=== PATIENT | female | born 1950 | race Caucasian/White ===

== ENCOUNTER 2019-12-10 15:50 | Emergency (ER) | payer MEDICARE, OTHER ==
[2019-12-10] MEDS ORDERED: MECLIZINE HCL 25 MG TABLET PO ONE ×2 (17:15→23:30)
--- NOTE | 2019-12-10 17:19 | ER Document Report ---
ED Medical Screen (RME) - General Chief Complaint: Dizziness Stated Complaint: DIZZINESS Time Seen by Provider: 12/10/19 17:13 Mode of Arrival: Ambulatory Information source: Patient Physical Exam - Vital signs Vitals: Temp Pulse Resp BP Pulse Ox 98.8 F 73 18 131/80 H 97 12/10/19 15:59 12/10/19 15:59 12/10/19 15:59 12/10/19 15:59 12/10/19 15:59 Course - Re-evaluation Re-evalutation: 12/10/19 17:18 pt complains of diffuse paresthesias in all ext. hard to walk. no nvd. no fever. no pain. been going on for one month. sent by urgent care. exam non focal neuro, nml speech, non labored breathing, no distress. - Vital Signs Vital signs: Temp Pulse Resp BP Pulse Ox 98.8 F 73 18 131/80 H 97 12/10/19 15:59 12/10/19 15:59 12/10/19 15:59 12/10/19 15:59 12/10/19 15:59
--- NOTE | 2019-12-10 17:48 | RADIOLOGY REPORT (SQ) ---
EXAM DESCRIPTION: CT HEAD WITHOUT IMAGES COMPLETED DATE/TIME: 12/10/2019 5:39 pm REASON FOR STUDY: dizzy COMPARISON: None. TECHNIQUE: Axial images acquired through the brain without intravenous contrast. Images reviewed wi th bone, brain and subdural windows. Additional sagittal and coronal reconstructions were generated. Images stored on PACS. All CT scanners at this facility use dose modulation, iterative reconstruction, and/or weight based d osing when appropriate to reduce radiation dose to as low as reasonably achievable (ALARA). [facility]: Dose Right [facility]: CareDose [facility]: Dose Right [facility]: Teradose 4D [facility]: Smart [employer] RADIATION DOSE: CT Rad equipment meets quality standard of care and radiation dose reduction techniq ues were employed. CTDIvol: 53.2 mGy. DLP: 991 mGy-cm. mGy. LIMITATIONS: None. FINDINGS: VENTRICLES: Normal size and contour. CEREBRUM: No masses. No hemorrhage. No midline shift. No evidence for acute infarction. Normal gra y/white matter differentiation. No areas of low density in the white matter. CEREBELLUM: No masses. No hemorrhage. No alteration of density. No evidence for acute infarction. EXTRAAXIAL SPACES: No fluid collections. No masses. ORBITS AND GLOBE: No intra- or extraconal masses. Normal contour of globe without masses. CALVARIUM: No fracture. PARANASAL SINUSES: No fluid or mucosal thickening. SOFT TISSUES: No mass or hematoma. OTHER: No other significant finding. IMPRESSION: NORMAL BRAIN CT WITHOUT CONTRAST. EVIDENCE OF ACUTE STROKE: NO. COMMENT: Quality ID # [id number]: Final reports with documentation of one or more dose reduction techniques (e.g., Automated exposure control, adjustment of the mA and/or kV according to patient size, use of iterative reconstruction technique) TECHNICAL DOCUMENTATION: JOB ID: [id number] 2010 [employer]- All Rights Reserved Reading location - IP/workstation name: [email or web address]
[2019-12-10 18:22] LABS: ABSOLUTE EOSINOPHILS # (AUTO) 0.2 10^3/uL (0.0-0.6); ABSOLUTE MONOCYTES (AUTO) 0.4 10^3/uL (0.1-1.4); MONOCYTES % (AUTO) 4.7 % (3-13); TOTAL CELLS COUNTED % (AUTO) 100 %
[2019-12-10 18:24] LABS: APPEARANCE,URINE CLEAR; BILIRUBIN,URINE NEGATIVE (NEGATIVE); COLOR,URINE YELLOW; GLUCOSE, URINE NEGATIVE (NEGATIVE); KETONES,URINE NEGATIVE (NEGATIVE); PROTEIN,URINE NEGATIVE (NEGATIVE); URINE SPECIFIC GRAVITY 1.017; UROBILINOGEN,URINE NEGATIVE mg/dL (<2.0)
[2019-12-10 18:31] LABS: ABSOLUTE LYMPHOCYTES (AUTO) 2.6 10^3/uL (0.5-4.7); ABSOLUTE NEUT (AUTO) 4.8 10^3/uL (1.7-8.2); BASOPHILS % (AUTO) 0.3 % (0-2); EOSINOPHILS % (AUTO) 2.2 % (0-6); HEMATOCRIT 40.5 % (36.0-47.0); HEMOGLOBIN 14.2 g/dL (12.0-15.5); LYMPHOCYTES % (AUTO) 32.3 % (13-45); MEAN CORPUSCULAR HEMOGLOBIN 28.8 pg (27.0-33.4); MEAN CORPUSCULAR VOLUME 82 fl (80-97); PLATELET COUNT 367 10^3/uL (150-450); RED BLOOD COUNT 4.92 10^6/uL (3.72-5.28); SEGMENTED NEUTROPHILS % (AUTO) 60.5 % (42-78); WHITE BLOOD COUNT 7.9 10^3/uL (4.0-10.5)
[2019-12-10 18:36] LABS: ALBUMIN 4.5 g/dL (3.5-5.0); ALKALINE PHOSPHATASE 119 U/L (38-126); ANION GAP 9 (5-19); ASPARTATE AMINO TRANSFERASE 35 U/L (14-36); BILIRUBIN,DIRECT 0.3 mg/dL (0.0-0.4); BILIRUBIN,TOTAL 0.5 mg/dL (0.2-1.3); BLOOD UREA NITROGEN 16 mg/dL (7-20); CALCIUM 9.7 mg/dL (8.4-10.2); CARBON DIOXIDE 32 mmol/L (22-30); CHLORIDE 100 mmol/L (98-107); GLUCOSE 100 mg/dL (75-110); POTASSIUM 4.1 mmol/L (3.6-5.0); TOTAL PROTEIN 7.7 g/dL (6.3-8.2)
--- NOTE | 2019-12-10 22:49 | ER Document Report ---
Entered by MICHAEL PACHECO SCRIBE 12/10/19 [id number] Acting as scribe for:ELIS KENNY DO ED General - General Chief Complaint: Dizziness Stated Complaint: DIZZINESS Time Seen by Provider: 12/10/19 17:13 Mode of Arrival: Ambulatory Information source: Patient, Relative - Daughter Notes: This 69 year old female patient with a history of COPD and hyperthyroidism presents to the emergency department today with complaints of general weakness the past x2 months. Patient states she visited her PCP and her thyroid medication was increased slowly. Patient states her weakness and dizziness has worsened the past x2 weeks and her thyroid medication dosage was decreased. Daajay hter reports trouble sleeping and decreased appetite. Denies constipation, abdominal pain, N/V/D, or covid exposure. Past Medical History - General Information source: Patient, Relative - Daughter - Social History Smoking Status: Former Smoker Lives with: Family Family History: Reviewed & Not Pertinent Pulmonary Medical History: Reports: Hx COPD Endocrine Medical History: Reports: Hx Hyperthyroidism Review of Systems - Review of Systems Constitutional: See HPI, Weakness EENT: No symptoms reported Cardiovascular: See HPI, Dizziness Respiratory: No symptoms reported Gastrointestinal: See HPI, Poor appetite. denies: Abdominal pain, Diarrhea, Nausea, Vomiting, Constipation Genitourinary: No symptoms reported Female Genitourinary: No symptoms reported Musculoskeletal: No symptoms reported Skin: No symptoms reported Hematologic/Lymphatic: No symptoms reported Neurological/Psychological: See HPI -: Yes All other systems reviewed and negative Physical Exam - Vital signs Vitals: Temp 98.7 F 12/10/19 15:50 - General General appearance: Appears well, Alert - HEENT Head: Normocephalic, Atraumatic Eyes: Normal Pupils: PERRL - Respiratory Respiratory status: No respiratory distress Chest status: Nontender Breath sounds: Normal Chest palpation: Normal - Cardiovascular Rhythm: Regular Heart sounds: Normal auscultation Murmur: No - Abdominal Inspection: Obese Distension: No distension Bowel sounds: Normal Tenderness: Nontender - Extremities General upper extremity: Normal inspection, Normal ROM. No: Edema General lower extremity: Normal inspection, Normal ROM. No: Edema - Neurological Neuro grossly intact: Yes Cognition: Normal Orientation: AAOx4 Alpha Coma Scale Eye Opening: Spontaneous Alpha Coma Scale Verbal: Oriented Alpha Coma Scale Motor: Obeys Commands Alpha Coma Scale Total: 15 Speech: Normal - Psychological Associated symptoms: Normal affect, Normal mood - Skin Skin Temperature: Warm Skin Moisture: Dry Skin Color: Normal Course - Re-evaluation Re-evalutation: 12/10/19 23:20 MDM 69 year old female with generalized weakness for at least 6 weeks and perhaps 2 months. No focal weakness. Very tired. Noted to be dizzy - both lightheaded and vertiginous today. No fever, covid exposure or other problems or concerns. She was relieved to hear that her ct scan was unrenarkable. Her levothyroxine dose has been too high and was adjusted down a few weeks ago they tell and unsure what the last dose is that she is currently taking. The thyroid could be responsible for her symptoms and she needs close follow up with her primary doctor - which we discussed - and she tells me she understands this and she will follow up. - Vital Signs Vital signs: Temp Pulse Resp BP Pulse Ox 97.6 F 68 16 119/62 98 12/10/19 23:57 12/10/19 23:57 12/10/19 23:57 12/10/19 23:57 12/10/19 23:57 - Laboratory Result Diagrams: 12/10/19 17:33 12/10/19 17:33 Laboratory results interpreted by me: 12/10/19 12/10/19 12/10/19 17:33 17:33 17:33 Carbon Dioxide 32 H Magnesium 2.6 H TSH 0.09 L Urine Ascorbic Acid 20 H - Diagnostic Test Radiology reviewed: Image reviewed, Reports reviewed Discharge - Discharge Clinical Impression: Dizziness Condition: Stable Disposition: HOME, SELF-CARE Instructions: Antinausea Medication ([facility]), Dizziness ([facility]), Meclizine ([facility]) Additional Instructions: Your thyroid blood test is not normal. Your dose of medicine seems to still be too high. This may well be the cause of your symptoms. [place] return here for chest pain, shortness of breath, increasing weakness or other problems or concerns. Prescriptions: Meclizine HCl [Antivert 12.5 mg Tablet] 12.5 mg PO TID #21 tablet I personally performed the services described in the documentation, reviewed and edited the documentation which was dictated to the scribe in my presence, and it accurately records my words and actions.
[2019-12-10 23:59] VITALS: BP 119/62
== END 2019-12-10 23:57 | disposition home or self-care (01) ==
LOC: ER 15:50
DX: R42 Dizziness and giddiness (principal); R53.1 Weakness; J44.9 Chronic obstructive pulmonary disease, unspecified
CPT/HCPCS: 99284; 36415; 83735; 84443; 85025; 80053; 81001; 70450; A9270